=== PATIENT | female | born 1940 | race Caucasian/White ===

== ENCOUNTER 2017-09-21 17:11 | Inpatient (IN) | payer OTHER ==
[~2017-09-21] VITALS: Ht 152.4 cm; Wt 47.5 kg
[2017-09-21] MEDS ORDERED: LORAZEPAM 2 MG/ML 1 ML VIAL IV STA ×2 (17:24→18:50)
--- NOTE | 2017-09-21 17:29 | EMERGENCY ROOM VISIT NOTE ---
History Report prepared by Lori: Enrique Maynard Under the Supervision of: Dr. Ryan Cook M.D. First contact with patient: 17:17 Stated Complaint: FALL History of Present Illness The patient is a 77 year old female who presents to the Emergency Room with complaints of a constant broken hip following a fall that occurred seven hours ago. Per , the patient fell out of her wheelchair this morning. He notes that imaging showed a broken hip bone on the patient's right side. He reports that he did not see the fall occur, but found the patient lying on the floor at the snf. He states that the patient constantly wears a cervical collar due to having a crushed vertebra. HPI limited secondary to dementia. Source of History: spouse/significant other History Limited By: dementia Onset: seven hours ago Position: pelvis Timing: constant Review of Systems ROS unattainable secondary to dementia. Past Medical & Surgical Medical Problems: (1) Dementia (2) Femoral fracture Family History No pertinent family history stated. Social History Marital Status: Housing Status: snf Occupation Status: retired Current/Historical Medications Scheduled Acetaminophen (Tylenol), 650 MG PO QPM Artificial Tear Solution (Artificial Tears), 1 DROPS OP TID Aspirin (Aspirin Ec), 81 MG PO QAM Chlorhexidine Gluconate (Mouth (Peridex), 30 ML PO BID Citalopram Hydrobromide (Celexa), 20 MG PO QAM Divalproex Sodium (Depakote Sprinkle), 125 MG PO BID Estrogens, Conjugated (Premarin), 0.625 MG PV WK Levothyroxine Sodium (Levothyroxine Sodium), 25 MCG PO QAM Lisinopril (Lisinopril), 20 MG PO QAM Melatonin (Melatonin Maximum Strengt), 5 MG PO DAILY AT 1800 Polyethylene Glycol 3350 (Miralax), 17 GM PO QAM Potassium Chloride (Klor-Con Sprinkle), 20 MEQ PO QAM Quetiapine Fumarate (Seroquel), 75 MG PO DAILY AT 1400 Ranitidine Hcl (Zantac), 150 MG PO BID Sennosides-Docusate Sodium (Senna-S), 2 TABS PO BID [Medpass 2.0], 60 ML PO QID Scheduled PRN Acetaminophen (Tylenol), 650 MG PO Q4H PRN for Pain or Fever Bisacodyl (Dulcolax), 1 SUPP KS QAM PRN for EARLY AM DAY 4, NO BM. Hydrocodone/Acetaminophen 5MG/325MG ([place] 5MG/325MG), 0.5 TABLET PO Q4H PRN for Pain Magnesium Hydroxide (Milk of Magnesia), 30 ML PO QPM PRN for NO BM FOR 3 DAYS. Sodium Phosphate/Biphosphate (Fleet Enema), 1 EA KS DAILY PRN for AM DAY 4, NO BM. Allergies Coded Allergies: Azelastine (Verified Allergy, Unknown, UNKNOWN-LISTED ON DEC, 09/21/17) Doxycycline (Verified Allergy, Unknown, UNKNOWN-LISTED ON DEC, 09/21/17) Erythromycin (Verified Allergy, Unknown, UNKNOWN-LISTED ON DEC, 09/21/17) Levocabastine (Verified Allergy, Unknown, UNKNOWN-LISTED ON DEC, 09/21/17) Lodoxamide (Verified Allergy, Unknown, UNKNOWN-LISTED ON DEC, 09/21/17) Sulfamethoxazole w/Trimethoprim (Verified Allergy, Unknown, UNKNOWN- LISTED ON DEC, 09/21/17) Venlafaxine (Verified Allergy, Unknown, UNKNOWN-LISTED ON DEC, 09/21/17) Physical Exam Vital Signs Date Time Temp Pulse Resp B/P (MAP) Pulse Ox O2 Delivery O2 Flow Rate FiO2 09/21/17 20:37 87 18 108/64 96 Room Air 09/21/17 18:33 94 09/21/17 17:20 36.7 93 20 158/62 100 Room Air Physical Exam GENERAL: Patient is in no acute distress. HEENT: No acute trauma, normocephalic atraumatic, mucous membranes moist, no nasal congestion, no scleral icterus. NECK: Wayne j collar in place. LUNGS: Clear to auscultation bilaterally, no wheeze, no rhonchi, breath sounds equal. HEART: Without murmurs gallops or rubs, regular rate and rhythm. ABDOMEN: Soft, nontender, bowel sounds positive, no hernias, no peritonitis. EXTREMITIES: Both hips and knees flexed, pain with palpation and movement to the right hip, no right knee discomfort with palpation, no upper extremity trauma noted. NEUROLOGIC: Moving all extremities, severe dementia noted, awake. SKIN: No rash, no jaundice, no diaphoresis. Medical Decision & Procedures ER Provider Diagnostic Interpretation: Radiology results as stated below per my review and radiologist interpretation: CT SCAN OF THE BRAIN WITHOUT IV CONTRAST FINDINGS: Brain parenchyma: There are age-related involutional changes noting mild to moderate subcortical and periventricular microangiopathic change. There is no hemorrhage, mass effect, or evidence of acute territorial ischemia by CT criteria. Rondon-white matter is preserved. No extra-axial fluid collection is seen. Ventricles, sulci, cisterns: Prominent secondary to involutional change. Intracranial vasculature: There is atherosclerotic calcification of the cavernous carotid arteries. Calvarium: The skeletal structures are osteopenic. No depressed calvarial fracture is seen. Sinuses and mastoids: The visualized paranasal sinuses are clear. The mastoid air cells are well pneumatized. Orbits: The bony orbits are grossly intact. IMPRESSION: There is no hemorrhage, mass effect, or evidence of acute territorial ischemia by CT criteria noting a significantly motion degraded examination. Electronically signed by: Ryan Hobbs M.D. 09/21/2017 7:[address] SCAN OF THE RIGHT HIP WITHOUT IV CONTRAST FINDINGS: The skeletal structures are osteopenic. There is an impacted subcapital fracture of the right femur, best seen on axial image #170. No additional fracture is identified. The visualized right hemipelvis appears intact. Mild arthritic change is seen in the right hip. No lytic or blastic lesion is seen. There is mild hemorrhage around the fracture site. No large hematoma is seen. No joint effusion is identified. The bladder is decompressed around a Velez catheter. The uterus and right adnexa are grossly unremarkable. There is significant fecal retention in the partially imaged colon. No right inguinal adenopathy is seen. IMPRESSION: There is an impacted subcapital fracture of the right femur. Electronically signed by: Ryan Hobbs M.D. 09/21/2017 7:31 PM SINGLE VIEW CHEST FINDINGS: An AP left lateral decubitus chest radiograph is obtained. The examination is severely degraded by inability to properly position the patient. The left hemithorax is almost completely obscured. The cardiomediastinal silhouette cannot be assessed. There is no evidence of congestive failure. The right lung is clear as visualized. No right-sided pneumothorax is seen. The skeletal structures are osteopenic. Healed right-sided rib fractures are suspected. IMPRESSION: 1. The right lung appears clear. 2. The cardiomediastinal silhouette and the left lung cannot be assessed. Electronically signed by: Ryan Hobbs M.D. 09/21/2017 8:31 PM Laboratory Results 09/21/17 18:34 Red Blood Count 3.40, Mean Corpuscular Volume 97.9, Mean Corpuscular Hemoglobin 32.4, Mean Corpuscular Hemoglobin Concent 33.0, Mean Platelet Volume 9.2, Neutrophils (%) (Auto) 75.5, Lymphocytes (%) (Auto) 11.5, Monocytes (%) (Auto) 11.8, Eosinophils (%) (Auto) 1.0, Basophils (%) (Auto) 0.1, Neutrophils # (Auto ) 5.82, Lymphocytes # (Auto) 0.89, Monocytes # (Auto) 0.91, Eosinophils # (Auto ) 0.08, Basophils # (Auto) 0.01 09/21/17 18:34 Test 09/21/17 18:18 09/21/17 18:34 09/21/17 18:40 Urine Color DK YELLOW Urine Appearance CLEAR (CLEAR) Urine pH 7.0 (4.5-7.5) Urine Specific Sherman 1.025 (1.000-1.030) Urine Protein NEG (NEG) Urine Glucose (UA) NEG (NEG) Urine Ketones NEG (NEG) Urine Occult Blood NEG (NEG) Urine Nitrite NEG (NEG) Urine Bilirubin NEG (NEG) Urine Urobilinogen NEG (NEG) Urine Leukocyte Esterase TRACE (NEG) Urine WBC (Auto) 0 /hpf (0-5) Urine RBC (Auto) 0-4 /hpf (0-4) Urine Hyaline Casts (Auto) 1-5 /lpf (0-5) Urine Epithelial Cells (Auto) 5-10 /lpf (0-5) Urine Bacteria (Auto) NEG (NEG) White Blood Count 7.72 K/uL (4.8-10.8) Red Blood Count 3.40 M/uL (4.2-5.4) Hemoglobin 11.0 g/dL (12.0-16.0) Hematocrit 33.3 % (37-47) Mean Corpuscular Volume 97.9 fL (80-100) Mean Corpuscular Hemoglobin 32.4 pg (25-34) Mean Corpuscular Hemoglobin Concent 33.0 g/dl (32-36) Platelet Count 160 K/uL (130-400) Mean Platelet Volume 9.2 fL (7.4-10.4) Neutrophils (%) (Auto) 75.5 % Lymphocytes (%) (Auto) 11.5 % Monocytes (%) (Auto) 11.8 % Eosinophils (%) (Auto) 1.0 % Basophils (%) (Auto) 0.1 % Neutrophils # (Auto) 5.82 K/uL (1.4-6.5) Lymphocytes # (Auto) 0.89 K/uL (1.2-3.4) Monocytes # (Auto) 0.91 K/uL (0.11-0.59) Eosinophils # (Auto) 0.08 K/uL (0-0.5) Basophils # (Auto) 0.01 K/uL (0-0.2) RDW Standard Deviation 46.8 fL (36.4-46.3) RDW Coefficient of Variation 13.1 % (11.5-14.5) Immature Granulocyte % (Auto) 0.1 % Immature Granulocyte # (Auto) 0.01 K/uL (0.00-0.02) Prothrombin Time 10.5 SECONDS (9.0-12.0) Prothromb Time International Ratio 1.0 (0.9-1.1) Activated Partial Thromboplast Time 23.2 SECONDS (21.0-31.0) Partial Thromboplastin Ratio 0.9 Anion Gap 2.0 mmol/L (3-11) Est Creatinine Clear Calc Drug Dose 52.1 ml/min Estimated GFR () 99.7 Estimated GFR (Non- 86.0 BUN/Creatinine Ratio 35.1 (10-20) Calcium Level 8.7 mg/dl (8.5-10.1) Magnesium Level 2.2 mg/dl (1.8-2.4) Valproic Acid (Depakene) Level 38 mcg/ml (50-100) Laboratory results reviewed by me. Medications Administered Medications (Trade) Dose Ordered Sig/Clarissa Route Start Time Stop Time Status Last Admin Dose Admin Lorazepam (Ativan Inj) 0.5 mg NOW STAT IV 09/21/17 17:24 09/21/17 17:28 DC 09/21/17 18:25 0.5 MG Morphine Sulfate (MoRPHine SULFATE INJ) 4 mg Q15M PRN IV 09/21/17 17:30 10/05/17 17:29 09/21/17 18:26 4 MG Lorazepam (Ativan Inj) 1 mg NOW STAT IV 09/21/17 18:50 09/21/17 18:51 DC 09/21/17 19:03 1 MG ECG Indication: other (hip fracture) Rate (beats per minute): 92 Rhythm: normal sinus (significant baseline artifact) Findings: other (old septal infarct, no obvious ischemia) ED Course 1717: The patient was evaluated in room A11. A complete history and physical exam was performed. 1723: Ativan Inj 0.5mg IV 1849: Lorazepam 1mg IV 1948: I reevaluated and updated the patient. I also spoke to the patient's family. 2004: Upon reexamination the patient is stable. I discussed results and treatment plan with the patient. Her verbalizes agreement and understanding. I spoke with Marcia Judge. We discussed the patient's results and findings. The patient will be evaluated for further management. Medical Decision Differential diagnoses include: intracranial bleed, hip/pelvic fracture, infection, anemia, electrolyte imbalance. There is no leukocytosis or concerning anemia. No significant electrolyte abnormality or kidney failure. Urinalysis does not show evidence for infection. There is no coagulopathy. Brain CT shows no acute bleed or mass effect. EKG shows a presumed sinus rhythm, no acute ischemia. Right hip CT does show a subcapital right hip fracture. The patient presents after falling. She has suffered a right hip fracture. She required IV morphine and IV Ativan for pain control and for control of her anxiety. The patient requires a hospital stay. Orthopedic intervention may be required. I did speak to the patient's family. The on-call hospitalist was consulted. Case management is involved. Medication Reconcilliation Current Medication List: was personally reviewed by me Blood Pressure Screening Patient's blood pressure: Elevated blood pressure Blood pressure disposition: Elevated BP felt to be situational Consults Time Called: 2000 Consulting Physician: Marcia Judge Returned Call: 2004 Discussed the patient's case. The patient will be evaluated for further management. Impression Primary Impression: Hip fracture, right Additional Impressions: Fall Dementia Scribe Attestation The scribe's documentation has been prepared under my direction and personally reviewed by me in its entirety. I confirm that the note above accurately reflects all work, treatment, procedures, and medical decision making performed by me. Departure Information Dispostion Being Evaluated By Hospitalist Referrals No Doctor, Assigned (PCP) Problem Qualifiers
[2017-09-21] MEDS ORDERED: MoRPHine SULFATE 4 MG/ML 1 ML CARP\\VIAL IV PRN (17:30)
[2017-09-21] MEDS ORDERED: ACET-1311 PO ×2 (18:57)
[2017-09-21] MEDS ORDERED: POTA1CAP53 PO (18:57)
[2017-09-21] MEDS ORDERED: CHLO0.1222 PO (18:57)
[2017-09-21] MEDS ORDERED: BISA10SU38 PR (18:57)
[2017-09-21] MEDS ORDERED: MEDPASS PO (18:57)
[2017-09-21] MEDS ORDERED: SRQ/50 PO (18:57)
[2017-09-21] MEDS ORDERED: ASPI81TA28 PO (18:57)
[2017-09-21] MEDS ORDERED: HYDR-5688 PO (18:57)
[2017-09-21] MEDS ORDERED: DIVA125C PO (18:57)
[2017-09-21] MEDS ORDERED: SODIENE PR (18:57)
[2017-09-21] MEDS ORDERED: PRMVC PV (18:57)
[2017-09-21] MEDS ORDERED: POLY335019 PO (18:57)
[2017-09-21] MEDS ORDERED: SENN-104 PO (18:57)
[2017-09-21] MEDS ORDERED: RANI150T3 PO (18:57)
[2017-09-21] MEDS ORDERED: ARTISOL12 OP (18:57)
[2017-09-21] MEDS ORDERED: CITA20TA9 PO (18:57)
[2017-09-21] MEDS ORDERED: LEVO25TA5 PO (18:57)
[2017-09-21] MEDS ORDERED: LSN20 PO (18:57)
[2017-09-21] MEDS ORDERED: MELATAB2 PO (18:57)
[2017-09-21] MEDS ORDERED: MOMLX PO (18:57)
[2017-09-21 19:00] LABS: BASO % 0.1 %; BASO ABS # 0.01 K/uL (0-0.2); COMPLETE YES; HEMATOCRIT 33.3 % (37-47); IG% 0.1 %; LYMPH % 11.5 %; LYMPH ABS # 0.89 K/uL (1.2-3.4); MEAN CELL VOLUME 97.9 fL (80-100); MEAN CORPUSCULAR HEMOGLOBIN 32.4 pg (25-34); MEAN PLATELET VOLUME 9.2 fL (7.4-10.4); MONO % 11.8 %; NEUT % 75.5 %; PLATELET COUNT 160 K/uL (130-400); WHITE BLOOD COUNT 7.72 K/uL (4.8-10.8)
[2017-09-21 19:10] LABS: BUN/CREATININE RATIO 35.1 (10-20); CALCIUM 8.7 mg/dl (8.5-10.1); CREATININE 0.67 mg/dl (0.60-1.20); POTASSIUM 4.5 mmol/L (3.5-5.1)
[2017-09-21 19:11] LABS: PARTIAL THROMBOPLASTIN RATIO 0.9; PROTHROMBIN TIME (PATIENT) 10.5 SECONDS (9.0-12.0)
[2017-09-21 19:12] LABS: URINE APPEARANCE CLEAR (CLEAR); URINE BILIRUBIN NEG (NEG); URINE COLOR DK YELLOW; URINE NITRITE NEG (NEG); URINE SPECIFIC GRAVITY 1.025 (1.000-1.030); UROBILINOGEN NEG (NEG); ZZURINE CULT IF INDIC CATH NO
[2017-09-21 19:20] LABS: MANUAL MICROSCOPIC REQUIRED? NO; REVIEW REQ? NO
--- NOTE | 2017-09-21 19:31 | DIAGNOSTIC IMAGING REPORT ---
CT SCAN OF THE BRAIN WITHOUT IV CONTRAST CLINICAL HISTORY: Fall. Dementia. COMPARISON STUDY: No priors. TECHNIQUE: Unenhanced axial CT scan of the brain is performed from the vertex to the skull base. The patient was scanned twice due to motion artifact. The examination is significantly compromised by motion artifact and by inability to properly position the patient within the CT gantry. CT DOSE: 1766.01 mGy.cm FINDINGS: Brain parenchyma: There are age-related involutional changes noting mild to moderate subcortical and periventricular microangiopathic change. There is no hemorrhage, mass effect, or evidence of acute territorial ischemia by CT criteria. Rondon-white matter is preserved. No extra-axial fluid collection is seen. Ventricles, sulci, cisterns: Prominent secondary to involutional change. Intracranial vasculature: There is atherosclerotic calcification of the cavernous carotid arteries. Calvarium: The skeletal structures are osteopenic. No depressed calvarial fracture is seen. Sinuses and mastoids: The visualized paranasal sinuses are clear. The mastoid air cells are well pneumatized. Orbits: The bony orbits are grossly intact. IMPRESSION: There is no hemorrhage, mass effect, or evidence of acute territorial ischemia by CT criteria noting a significantly motion degraded examination. Electronically signed by: Ryan Hobbs M.D. 09/21/2017 7:24 PM Dictated Date/Time: 09/21/2017 7:21 PM
--- NOTE | 2017-09-21 19:33 | DIAGNOSTIC IMAGING REPORT ---
CT SCAN OF THE RIGHT HIP WITHOUT IV CONTRAST CLINICAL HISTORY: Fall. Hip pain. COMPARISON STUDY: No priors. TECHNIQUE: CT scan of the right hip is performed from the bony pelvis to the proximal femur. Images are reviewed in the axial, sagittal, and coronal planes. IV contrast was not administered for this examination. The examination is degraded by motion as well as by inability to properly position the patient. A dose lowering technique was utilized adhering to the principles of ALARA. CT DOSE: 1192.89 mGy.cm FINDINGS: The skeletal structures are osteopenic. There is an impacted subcapital fracture of the right femur, best seen on axial image #170. No additional fracture is identified. The visualized right hemipelvis appears intact. Mild arthritic change is seen in the right hip. No lytic or blastic lesion is seen. There is mild hemorrhage around the fracture site. No large hematoma is seen. No joint effusion is identified. The bladder is decompressed around a Velez catheter. The uterus and right adnexa are grossly unremarkable. There is significant fecal retention in the partially imaged colon. No right inguinal adenopathy is seen. IMPRESSION: There is an impacted subcapital fracture of the right femur. Electronically signed by: Ryan Hobbs M.D. 09/21/2017 7:31 PM Dictated Date/Time: 09/21/2017 7:28 PM
--- NOTE | 2017-09-21 20:32 | DIAGNOSTIC IMAGING REPORT ---
SINGLE VIEW CHEST CLINICAL HISTORY: Fall. Hip fracture FINDINGS: An AP left lateral decubitus chest radiograph is obtained. The examination is severely degraded by inability to properly position the patient. The left hemithorax is almost completely obscured. The cardiomediastinal silhouette cannot be assessed. There is no evidence of congestive failure. The right lung is clear as visualized. No right-sided pneumothorax is seen. The skeletal structures are osteopenic. Healed right-sided rib fractures are suspected. IMPRESSION: 1. The right lung appears clear. 2. The cardiomediastinal silhouette and the left lung cannot be assessed. Electronically signed by: Ryan Hobbs M.D. 09/21/2017 8:31 PM Dictated Date/Time: 09/21/2017 8:29 PM
[2017-09-21] MEDS ORDERED: MoRPHine SULFATE 2 MG/ML CARP IV PRN (21:00)
[2017-09-21] MEDS ORDERED: TRAMADOL HCL 50 MG TAB PO PRN (21:00)
[2017-09-21] MEDS ORDERED: ACETAMINOPHEN 325 MG TAB PO PRN ×2 (21:00)
[2017-09-21] MEDS ORDERED: SOD PHOSPHATE/SOD BIPHOSPHATE ENEMA 132 ML BTL PR PRN (21:00)
[2017-09-21] MEDS ORDERED: POLYETHYLENE (MIRALAX) 17 GM PACK PO PRN (21:00)
[2017-09-21] MEDS ORDERED: MAGNESIUM HYDROXIDE SUSP 30 ML UDC PO PRN (21:00)
[2017-09-21] MEDS ORDERED: NALOXONE HCL 0.4 MG/1 ML VIAL/CARP IV PRN (21:00)
[2017-09-21] MEDS ORDERED: BISACODYL 10 MG SUPP PR PRN (21:00)
[2017-09-21] MEDS ORDERED: HYDROCODONE/ACETAMOPHEN 5/325MG TAB PO PRN (21:00)
[2017-09-21 22:00] VITALS: O2SAT 94; Ht 152.4 cm; Wt 47.5 kg
[2017-09-21 22:07] VITALS: BP 128/56; PULSE 85; TEMP 36.6; O2SAT 94
[2017-09-21] MEDS: SODIUM CHLORIDE 0.45% 1000ML 1,000 ML IV SCH (23:25)
[2017-09-21] MEDS: RANITIDINE HCL 150 MG TAB PO SCH (23:30)
[2017-09-21] MEDS: DIVALPROEX SODIUM SPRINKLE 125 MG CAP PO SCH (23:30)
[2017-09-21] MEDS: DOCUSATE SODIUM/SENNA 50/8.6MG TAB PO SCH (23:30)
[2017-09-22 00:05] VITALS: BP 120/51; PULSE 91; TEMP 37; O2SAT 93
--- NOTE | 2017-09-22 02:39 | HISTORY & PHYSICAL EXAMINATION ---
DATE OF ADMISSION: 09/21/2017 PRIMARY CARE DOCTOR: Dr. Carina Feliciano. CHIEF COMPLAINT: R femoral fracture, fall as per records. HISTORY OF PRESENT ILLNESS: History obtained from patient's family, records. Unable to obtain history from patient because of severe dementia. Patient is an [facility] resident. Medical history significant for dementia, hypertension, history of TIA, chronic anemia as per records (baseline hemoglobin of 11), history of traumatic C1 fracture on cervical collar since 2014. As per patient's , patient tried to get up from her wheelchair today, subsequently, fell down on her right side. Cried out in pain, could not get up. An outpatient x-ray showed nondisplaced fracture of right femoral neck, subcapital region. Patient sent to the Emergency Room. MEDICAL HISTORY: As above. Patient sustained a C1 fracture with spinal instability last February 2015. Last CT from April of 2015 showed marked displacement of fracture segments, left arch of C1, right posterior arch of C1, marked asymmetry of dense with respect to lateral masses and also misalignment of sagittal images. The patient evaluated by [facility] Neurosurgeon. Patient was deemed to be a poor candidate - would not likely survive surgery needed to correct the fracture as per notes. Patient will need to wear a cervical collar for an indefinite amount of time. No follow up visits since. 2D echo from 2013 showed EF 50%, diastolic dysfunction. SURGERIES: She has had tonsillectomy, eye surgery, pelvic surgery. HOME MEDICATIONS: Include Tylenol, bisacodyl, chlorhexidine, estrogen, magnesium hydroxide, Senokot, sodium phosphate, melatonin, potassium chloride, artificial tears, citalopram, Depakote, Vicodin, levothyroxine, lisinopril, polyethylene glycol, ranitidine. ALLERGIES: DOXYCYCLINE, ERYTHROMYCIN, LEVOCABASTINE, LODOXAMIDE, BACTRIM, VENLAFAXINE. FAMILY HISTORY: Could not be obtained. PERSONAL AND SOCIAL HISTORY: Nonsmoker. No chronic intake of alcoholic beverages. Homemaker in her younger years Currently long term resident. REVIEW OF SYSTEMS: Cannot be reliably obtained. PHYSICAL EXAMINATION: VITAL SIGNS: Blood pressure was noted to be 158/62 later 130/80, pulse rate 87, RR 18, temperature 36.7, sats 96 on room air. GENERAL: Lying on her left lateral decubitus. Noted to be demented, slightly uncomfortable. No respiratory distress. Hyposthenic. SKIN: Pallor, warm. HEENT: Pale palpebral conjuctivae. No ptosis. Dry buccal mucosa. NECK: Cervical collar in place. CHEST: Decreased effort. No tenderness. HEART: Regular rate and rhythm. No murmur. ABDOMEN: Soft, nontender. EXTREMITIES: Tenderness on the right hip. No other gross deformities. NEUROLOGIC: Demented. Gait and stance not assessed. No facial asymmetry. LABORATORY DATA: Hemoglobin was noted to be 11, hematocrit 30.2, white cell count 7.2, platelets 160. Sodium 140, potassium 4.5, chloride 106, CO2 34, BUN 24, creatinine 0.6, glucose 87. CT head, no acute pathology. Chest x-ray, no CHF. CT of the hip, impacted subcapital fracture of the right femur. EKG as per my interpretation, rate 90, normal sinus rhythm, no ischemia, artifact ridden study ASSESSMENT: 1. Traumatic right femoral fracture secondary to mechanical fall ambulatory dysfunction. 2. History of unstable cervical fracture on cervical collar since 2014. Poor surgical candidate as per [facility] Neurosurgery evaluation in 2015. 3. Hypertension, slightly elevated. 4. Dementia as per records. 5. hx TIA as per records 6 Chronic anemia, hemoglobin at baseline PLAN: [facility] Orthopedics consult RE R femoral fracture. (Patient's requesting for Dr. Lynn.) No medical contraindication to contemplated Ortho procedure. Acceptable risk for cardiac complications for contemplated intermediate risk procedure.. Patient may however require spine evaluation prior to OR pending Anesthesiology evaluation on account of history of unstable cervical fracture if warranted. Delirium precautions. Resume home aspirin for secondary stroke prevention once if O with Orthopedics. DVT prophylaxis, SCDs for now. Recommend pharmacologic anticoagulation with Lovenox subQ once perioperative bleeding risk is deemed to be minimal and negligible by Orthopedics service. DNR as per patient's /POA, . Chucho Caballero, He requests updates from providers at [phone]/ [phone]. [facility]
[2017-09-22] MEDS: LEVOTHYROXINE 25 MCG TAB PO SCH (06:00)
[2017-09-22 06:43] LABS: BASO % 0.2 %; BASO ABS # 0.02 K/uL (0-0.2); COMPLETE YES; EOS % 0.1 %; HEMATOCRIT 31.8 % (37-47); IG% 0.2 %; LYMPH % 5.3 %; LYMPH ABS # 0.49 K/uL (1.2-3.4); MEAN CELL VOLUME 96.4 fL (80-100); MEAN CORPUSCULAR HEMOGLOBIN 30.9 pg (25-34); MEAN CORPUSCULAR HGB CONC 32.1 g/dl (32-36); MEAN PLATELET VOLUME 9.2 fL (7.4-10.4); MONO % 10.7 %; NEUT % 83.5 %; PLATELET COUNT 149 K/uL (130-400); WHITE BLOOD COUNT 9.24 K/uL (4.8-10.8)
[2017-09-22 07:11] LABS: BUN/CREATININE RATIO 34.6 (10-20); CALCIUM 8.2 mg/dl (8.5-10.1); CREATININE 0.67 mg/dl (0.60-1.20); POTASSIUM 4.2 mmol/L (3.5-5.1)
[2017-09-22 07:56] VITALS: BP 168/65; PULSE 105; TEMP 37.4; O2SAT 93
[2017-09-22] MEDS: RANITIDINE HCL 150 MG TAB PO SCH ×2 (08:30→21:17)
[2017-09-22] MEDS: CITALOPRAM 20 MG TAB PO SCH (08:30)
[2017-09-22] MEDS: ARTIFICIAL TEARS OP SOLN OP SCH ×6 (08:30→21:24)
[2017-09-22] MEDS: POLYETHYLENE (MIRALAX) 17 GM PACK PO SCH (08:30)
[2017-09-22] MEDS: LISINOPRIL 20 MG TAB PO SCH (08:30)
[2017-09-22] MEDS: DIVALPROEX SODIUM SPRINKLE 125 MG CAP PO SCH ×2 (08:30→21:16)
--- NOTE | 2017-09-22 09:09 | DIAGNOSTIC IMAGING REPORT ---
R HIP UNILATERAL 2 VIEWS CLINICAL HISTORY: RT HIP FX trauma. Pain. COMPARISON: CT dated 09/21/2017 DISCUSSION: The impacted subcapital fracture right hip is again noted. There is a linear extension of the fracture line to the mid femoral neck. Slight deformity of the intertrochanteric region felt to be nonacute. Mild calcific trochanteric bursitis. There is no evidence for soft tissue swelling. IMPRESSION: Slightly impacted subcapital fracture right hip. 2. Linear fracture line extending to the mid femoral neck. 3. Mild calcific trochanteric bursitis. 4. No evidence of dislocation. The above report was generated using voice recognition software. It may contain grammatical, syntax or spelling errors. Electronically signed by: Tommy Gonzalez M.D. 09/22/2017 9:07 AM Dictated Date/Time: 09/22/2017 9:05 AM
--- NOTE | 2017-09-22 09:22 | ORTHOPEDIC CONSULTATION REPORT ---
DATE OF CONSULTATION: 09/22/2017 REASON FOR CONSULT: Right hip fracture. HISTORY OF PRESENT ILLNESS: The patient is a 77-year-old white female who is a alf resident and has a history of dementia and at this time, is not a good historian and no family is present. History will be taken from the chart. Apparently, the patient was at [facility] and her was trying to get her up from her wheelchair and she subsequently fell on to her left side. She had cried out in pain apparently and an outpatient x-ray was taken somewhere and showed a nondisplaced fracture of the right femoral neck of the subcapital region. At this time, these films are not available; however, a CT scan was performed here at [facility] and it did show the subcapital fracture. No plain films were done here. PAST MEDICAL HISTORY: History of C1 fracture in 2014, which apparently showed a displacement of fracture fragments with right posterior arch of the C1 and left arch of the C1 with marked asymmetry with respect to the lateral masses and also misalignment of sagittal images; however, the patient was deemed a poor candidate for surgery and surgery was not done and plans were to have the patient wear a cervical collar. She has a history of hypertension, dementia as noted above, and chronic anemia. FAMILY HISTORY: The patient is unable to provide at this point, noncontributory. SOCIAL HISTORY: [facility] She had no history of smoking and no history of alcoholic intake. MEDICATIONS: She is noted to be on Tylenol 650 mg p.o. q.p.m. and p.r.n., artificial tears 1 drop OP t.i.d., aspirin 81 mg p.o. q.a.m., Dulcolax suppository p.r.n., chlorhexidine gluconate 30 mL p.o. b.i.d. for 8 days, Celexa 20 mg p.o. q.a.m., Depakote 125 mg p.o. b.i.d., Premarin 0.625 mg PV given on Fridays, [place] 5/325 half tablet p.o. q. 4 hours p.r.n., levothyroxine 25 mcg p.o. q.a.m., lisinopril 20 mg p.o. q.a.m., milk of magnesia 30 mL p.o. q.p.m. p.r.n., melatonin 5 mg p.o. daily at 1800, MiraLax 17 g p.o. q.a.m., potassium chloride 20 mEq p.o. q.a.m., Seroquel 75 mg p.o. daily, ranitidine 150 mg p.o. b.i.d., Senna-S 2 tablets p.o. b.i.d., Fleet enema p.r.n., Med Pass 2.0 60 mL p.o. q.i.d. ALLERGIES: AZELASTINE, DOXYCYCLINE, ERYTHROMYCIN, LEVOCABASTINE, LODOXAMIDE, BACTRIM, EFFEXOR. REVIEW OF SYSTEMS: As per admitting history and physical. PHYSICAL EXAMINATION: VITAL SIGNS: This morning, temperature 37.4, pulse 105, respirations 17, BP 168/65, pulse ox 93 on room air. GENERAL: The patient is currently lying in bed and is in almost a position at this point in time with her legs drawn up close to her chest, more on the right than the left. When speaking with her, she does reply somewhat but is difficult to understand and does not follow commands well. EXTREMITIES: Examining her right lower extremity, she has the hip flexed to approximately 95 degrees, at least pulled up almost her chest and no attempts can make her move the leg down at this time. It is noted that her right foot is pink and warm and as does the left with pulses 1/4 bilaterally. I cannot examine the patient's leg lengths due to her current position. Palpation of the shoulders, elbows and wrists does not appear to elicit a painful response and assessing range of motion is difficult at this time. She appears to have no injury of the left lower extremity and has no pain on palpation of the left knee or ankle. Difficult to assess the left hip; however, palpation on this area and attempted movement of the left lower extremity, she does not show signs of pain. She does not show signs of pain with palpation of the right knee or the right ankle as well. X-RAY REPORT: CT scan of the hip shows impacted subcapital fracture of the right hip. ASSESSMENT: Subcapital fracture, right hip. PLAN: I have discussed the case with Dr. Lynn this morning. We will attempt to take plain films if possible; if not possible, we will plan for cannulated screws for the right hip initially. If for any reason, once she is in the operating room and x-ray assessment is made that the fracture has worsened, there is a possibility that she would need a bipolar hemiarthroplasty. We will discuss the case with medicine service and with family and continue on her present course of getting her ready for the operating room. SEMAJ
[2017-09-22 09:32] VITALS: O2SAT 93
[2017-09-22 12:20] VITALS: BP 121/62; PULSE 100; TEMP 37; O2SAT 95
[2017-09-22 13:28] VITALS: TEMP 38
[2017-09-22] MEDS: QUETIAPINE FUMARATE 25 MG TAB PO SCH (13:31)
[2017-09-22 15:05] VITALS: BP 149/68; PULSE 89; TEMP 37.3; O2SAT 97
[2017-09-22] MEDS: SODIUM CHLORIDE 0.45% 1000ML 1,000 ML IV SCH (18:08)
--- NOTE | 2017-09-22 19:10 | Progress Note ---
Internal Med Progress Note Date of Service: Sep 22, 2017. Provider Documentation: SUBJECTIVE: The patient was seen and examined Not much communicative Not in any distress Remains in flexed position OBJECTIVE: Vital Signs-as noted below Exam: General-NO distress at rest Eyes-normal ENT-normal Neck-Has cervical collar Lungs-Decreased breath sound bilaterally Heart-Regular,no murmur appreciated Abdomen-Benign,no masses,bowel sound present Extremities-Trace edema bilaterally Neuro-AA Non communicative Lab data as noted below. ASSESSMENT & PLAN: Traumatic right femoral fracture secondary to mechanical fall Ambulatory dysfunction. Not in any Pain at rest Orthopedics consult RE R femoral fracture-Dr Lynn-appreciate Input No medical contraindication to contemplated Ortho procedure. Acceptable risk for cardiac complications for recommended intermediate risk procedure.. Patient may however require spine evaluation prior to OR pending Anesthesiology evaluation-discussed with the anesthesiologist Remains stable clinically Likely surgery in AM History of unstable cervical fracture on cervical collar since 2014. Poor surgical candidate as per [facility] Neurosurgery evaluation in 2015. Anesthesiologist aware Hypertension, slightly elevated. BP is controlled now Dementia as per records. H/O TIA as per records Chronic anemia, hemoglobin at baseline Hb 10 DVT prophylaxis, SCDs for now. Recommend pharmacologic anticoagulation with Lovenox subQ once perioperative bleeding risk is deemed to be minimal and negligible by Orthopedics service. DNR as per patient's /POA, Mr. Chucho Caballero, He requests updates from providers at [phone]/ [phone]. Vital Signs: Date Time Temp Pulse Resp B/P (MAP) Pulse Ox O2 Delivery O2 Flow Rate FiO2 09/22/17 16:00 Room Air 09/22/17 15:05 37.3 89 16 149/68 (95) 97 Room Air 09/22/17 13:28 38.0 09/22/17 12:20 37.0 100 17 121/62 (81) 95 Room Air 09/22/17 09:32 93 Room Air 09/22/17 08:15 Room Air 09/22/17 07:56 37.4 105 17 168/65 (99) 93 Room Air 09/22/17 00:20 Room Air 09/22/17 00:05 37.0 91 16 120/51 (74) 93 Room Air 09/21/17 22:07 36.6 85 16 128/56 (80) 94 Room Air 09/21/17 22:00 94 Room Air 09/21/17 22:00 94 Room Air 09/21/17 20:37 87 18 108/64 96 Room Air Lab Results: Results Past 24 Hours Test 09/22/17 06:08 Range/Units White Blood Count 9.24 4.8-10.8 K/uL Red Blood Count 3.30 4.2-5.4 M/uL Hemoglobin 10.2 12.0-16.0 g/dL Hematocrit 31.8 37-47 % Mean Corpuscular Volume 96.4 80-100 fL Mean Corpuscular Hemoglobin 30.9 25-34 pg Mean Corpuscular Hemoglobin Concent 32.1 32-36 g/dl Platelet Count 149 130-400 K/uL Mean Platelet Volume 9.2 7.4-10.4 fL Neutrophils (%) (Auto) 83.5 % Lymphocytes (%) (Auto) 5.3 % Monocytes (%) (Auto) 10.7 % Eosinophils (%) (Auto) 0.1 % Basophils (%) (Auto) 0.2 % Neutrophils # (Auto) 7.71 1.4-6.5 K/uL Lymphocytes # (Auto) 0.49 1.2-3.4 K/uL Monocytes # (Auto) 0.99 0.11-0.59 K/uL Eosinophils # (Auto) 0.01 0-0.5 K/uL Basophils # (Auto) 0.02 0-0.2 K/uL RDW Standard Deviation 45.4 36.4-46.3 fL RDW Coefficient of Variation 13.0 11.5-14.5 % Immature Granulocyte % (Auto) 0.2 % Immature Granulocyte # (Auto) 0.02 0.00-0.02 K/uL Sodium Level 139 136-145 mmol/L Potassium Level 4.2 3.5-5.1 mmol/L Chloride Level 106 98-107 mmol/L Carbon Dioxide Level 28 21-32 mmol/L Anion Gap 5.0 3-11 mmol/L Blood Urea Nitrogen 23 7-18 mg/dl Creatinine 0.67 0.60-1.20 mg/dl Est Creatinine Clear Calc Drug Dose 52.1 ml/min Estimated GFR () 99.7 Estimated GFR (Non- 86.0 BUN/Creatinine Ratio 34.6 10-20 Random Glucose 128 70-99 mg/dl Calcium Level 8.2 8.5-10.1 mg/dl Microbiology Results 09/21/17 MRSA DNA Surveillance Screen - Final, Complete Specimen Negative for MRSA by DNA Probe
[2017-09-22] MEDS: DOCUSATE SODIUM/SENNA 50/8.6MG TAB PO SCH (21:17)
[2017-09-23] VITALS (11 sets, daily range): BP systolic 90–157; BP diastolic 52–79; PULSE 59–97; TEMP 36.4–37.1; O2SAT 97–100
[2017-09-23] MEDS: LEVOTHYROXINE 25 MCG TAB PO SCH (06:00)
[2017-09-23] MEDS ORDERED: MIDAZOLAM HCL 1 MG/ML 2ML VIAL ONE (06:27)
[2017-09-23] MEDS ORDERED: FENTANYL CITRATE INJ 50 MCG/1 ML 2 ML VIAL ONE (06:27)
[2017-09-23] MEDS ORDERED: PROPOFOL IV EMULSION 10 MG/ML 20 ML VIAL IV ONE (06:28)
[2017-09-23] MEDS ORDERED: KETAMINE HCL INJ 50 MG/ML 10 ML VIAL ONE (07:17)
--- NOTE | 2017-09-23 07:18 | History & Physical Bridge Note ---
H&P Re-Evaluation Bridge Note: I have examined the patient, reviewed the History & Physical and in the interval since the performance of the History & Physical I have noted the following changes of clinical significance: No changes noted
[2017-09-23] MEDS ORDERED: ONDANSETRON INJ 2 MG/ML 2 ML VIAL IV PRN (08:00)
[2017-09-23] MEDS ORDERED: ATROPINE SULFATE 0.1 MG/ML 5ML SYR IV PRN (08:30)
[2017-09-23] MEDS ORDERED: EpHEDrine SULFATE INJ 50 MG/ML AMP IV PRN (08:30)
--- NOTE | 2017-09-23 08:32 | Clinical Documentation Query ---
Please send this to Dr Fay CLINICAL DOCUMENTATION QUERY A 77 year old female who presents to the Emergency Room with complaints of a broken hip following a fall that occurred seven hours ago. In your clinical opinion is this patient being managed for: ( ) Chronic diastolic CHF ( ) Not Agree ( ) Other explanation of clinical findings (Please Explain) ( ) Unable to determine (Please Define) ( ) Need to Discuss The medical record reflects the following clinical findings, treatment, and risk factors. Clinical Indicators: 2D echo from 2014 showed EF 50%, diastolic dysfunction Treatment: I&O, CXR Risk Factors: Age, HTN Please clarify and document your clinical opinion in the progress notes and discharge summary. Terms such as "probable", "suspected", "likely", "questionable", "possible", or "still to be ruled out" are acceptable. IF IN AGREEMENT, YOU MUST DOCUMENT ABOVE DIAGNOSTIC STATEMENT IN DAILY PROGRESS NOTES AND DISCHARGE SUMMARY. This document is not part of the patient's record. Thank You, Layla Flores RN [phone]
--- NOTE | 2017-09-23 08:41 | [facility] Post Operative Brief Note ---
Immediate Operative Summary Operative Date Sep 23, 2017. Pre-Operative Diagnosis Subcapital fracture, right hip Post-Operative Diagnosis same as pre-operative Procedure(s) Performed Open Reduction Internal Fixation Right Hip With Cannulated Screws Surgeon Dr. Lynn Activities Concierge Surgeon(s) none Estimated Blood Loss 10ml Findings garden 1 impacted in valgus femoral neck fx Specimens none per surgeon Anesthesia spinal Complication(s) None Disposition Recovery Room / PACU
--- NOTE | 2017-09-23 08:45 | DIAGNOSTIC IMAGING REPORT ---
INTRAOPERATIVE RADIOGRAPHS CLINICAL HISTORY: Open reduction and internal fixation of the right hip. Fluoroscopy time: 62 seconds. FINDINGS: 2 spot fluoroscopic views of the right hip are correlated with radiographs dated 09/22/2017. 2 intertrochanteric cortical lag screws transfix a subcapital fracture. The orthopedic hardware appears intact. IMPRESSION: Intraoperative images from open reduction and internal fixation of the right hip as above. Electronically signed by: Ryan Hobbs M.D. 09/23/2017 8:43 AM Dictated Date/Time: 09/23/2017 8:40 AM
--- NOTE | 2017-09-23 08:45 | DIAGNOSTIC IMAGING REPORT ---
INTRAOPERATIVE RADIOGRAPHS CLINICAL HISTORY: Open reduction and internal fixation of the right hip. Fluoroscopy time: 62 seconds. FINDINGS: 2 spot fluoroscopic views of the right hip are correlated with radiographs dated 09/22/2017. 2 intertrochanteric cortical lag screws transfix a subcapital fracture. The orthopedic hardware appears intact. IMPRESSION: Intraoperative images from open reduction and internal fixation of the right hip as above. Electronically signed by: Ryan oHbbs M.D. 09/23/2017 8:43 AM Dictated Date/Time: 09/23/2017 8:40 AM
--- NOTE | 2017-09-23 08:54 | OPERATIVE REPORT ---
DATE OF OPERATION: 09/23/2017 INDICATION FOR PROCEDURE: A 77-year-old female who has dementia. She suffered a fall and fractured her right hip. Radiographs and CT scan demonstrated a Garden I impacted in valgus stable femoral neck fracture. PREOPERATIVE DIAGNOSIS: Impacted right femoral neck fracture. POSTOPERATIVE DIAGNOSIS: Same. PROCEDURE: Internal fixation right hip fracture using cannulated screws. SURGEON: Dr. Lynn. SHOW OPERATIONS SUPERVISOR: None. ANESTHESIA: Spinal sedation. OPERATIVE PROCEDURE: The patient was taken to the operating room, anesthetized under spinal sedation. The patient was positioned on a fracture table. Her right leg was placed into boot traction, but no significant traction was placed due to the impacted fracture. Her left leg was placed in a well-padded leg holding device. We used fluoroscopy throughout the case as needed. Right hip was then sterilely prepped and draped with ChloraPrep. A small longitudinal incision was made over the greater trochanter. Skin was incised sharply. The fat was divided down to the fascia. The fascia was divided longitudinally. She is a thin individual and we were able to dissect right down with electrocautery onto the bone trochanter. I used the Synthes 7.3 mm cannulated screws. We placed first a guidewire in the lower third of the head just above the calcar and more toward the anterior aspect on the lateral view. A second pin was parallel to the first and posterior and superior thinned with inverted triangle pattern was in the upper head and neck area. Screws were measured and 3 self-tapping screws were placed, stainless steel Synthes 7.3 mm screws. The patient had reasonably good bone with tight fixation of the screws. We assessed fluoroscopy, the screws to be in satisfactory position all within the head with no joint penetration. Wound was irrigated and the fascia was closed with [id number] #1 Vicryl sutures. Subcutaneous tissues closed with interrupted 2-0 Vicryl sutures, skin closed with guero. Sterile dressings and Op-Site was placed over the operative site. The patient had 10 mL of blood loss. She tolerated the procedure well. I attest to the content of the Intraoperative Record and any orders documented therein. Any exception s are noted below.
[2017-09-23] MEDS: POLYETHYLENE (MIRALAX) 17 GM PACK PO SCH (09:00)
[2017-09-23] MEDS: RANITIDINE HCL 150 MG TAB PO SCH ×2 (09:00→21:12)
[2017-09-23] MEDS: CITALOPRAM 20 MG TAB PO SCH (09:00)
[2017-09-23] MEDS: ARTIFICIAL TEARS OP SOLN OP SCH ×6 (09:00→21:11)
--- NOTE | 2017-09-23 09:12 | Anesthesiology Progress Note ---
Anesthesia Post Op Note Date & Time Sep 23, 2017 at 09:11 Vital Signs Pain Intensity: 0.0 Vital Signs Past 12 Hours Date Time Temp Pulse Resp B/P (MAP) Pulse Ox O2 Delivery O2 Flow Rate FiO2 09/23/17 08:55 54 15 137/47 100 Oxymask 8 09/23/17 08:45 55 15 134/45 100 Oxymask 8 09/23/17 08:37 36.4 59 16 135/60 100 Oxymask 8 09/23/17 06:33 36.5 83 18 107/52 (70) 97 Room Air 09/23/17 00:55 Room Air 09/23/17 00:13 37.1 81 12 131/78 (95) 97 Room Air Notes Mental Status: see Notes Pt Amnestic to Procedure: Yes Nausea / Vomiting: adequately controlled Pain: adequately controlled Airway Patency, RR, SpO2: stable & adequate BP & HR: stable & adequate Hydration State: stable & adequate Neuraxial Anesthesia: was administered, sensory block is resolving Anesthetic Complications: no major complications apparent pt has severe dementia
[2017-09-23] MEDS: DIVALPROEX SODIUM SPRINKLE 125 MG CAP PO SCH ×2 (12:25→21:12)
[2017-09-23] MEDS: ASPIRIN 81 MG ECTAB PO SCH ×2 (12:25→21:12)
[2017-09-23] MEDS: LISINOPRIL 20 MG TAB PO SCH (12:26)
[2017-09-23] MEDS: QUETIAPINE FUMARATE 25 MG TAB PO SCH (12:26)
[2017-09-23] MEDS: ACETAMINOPHEN 500 MG TAB PO SCH ×2 (12:27→21:13)
[2017-09-23] MEDS: SODIUM CHLORIDE 0.45% 1000ML 1,000 ML IV SCH (12:30)
[2017-09-23] MEDS: CEFAZOLIN IV 1,000 MG in SYRINGE 0 ML IV SCH ×2 (12:32→20:10)
[2017-09-23 13:25] LABS: HEMATOCRIT 30.9 % (37-47); MEAN CELL VOLUME 95.7 fL (80-100); MEAN CORPUSCULAR HEMOGLOBIN 31.9 pg (25-34); MEAN CORPUSCULAR HGB CONC 33.3 g/dl (32-36); MEAN PLATELET VOLUME 9.1 fL (7.4-10.4); PLATELET COUNT 127 K/uL (130-400); RED BLOOD COUNT 3.23 M/uL (4.2-5.4); WHITE BLOOD COUNT 9.41 K/uL (4.8-10.8)
[2017-09-23 13:52] LABS: BUN/CREATININE RATIO 30.1 (10-20); CALCIUM 8.8 mg/dl (8.5-10.1); CREATININE 0.6 mg/dl (0.60-1.20); MAGNESIUM 2.1 mg/dl (1.8-2.4); POTASSIUM 4.2 mmol/L (3.5-5.1)
--- NOTE | 2017-09-23 17:44 | Progress Note ---
Medicine Progress Note Date & Time of Visit: Sep 23, 2017 at 17:34. Subjective Patient was seen after surgery today, was very somnolent and not answering questions or making eye contact. No overnight events noted. At baseline patient does have significant dementia. Objective Last 8 Hrs Date Time Temp Pulse Resp B/P (MAP) Pulse Ox O2 Delivery O2 Flow Rate FiO2 09/23/17 15:43 36.9 67 16 90/56 (67) 97 Room Air 09/23/17 12:52 95 16 100/68 (79) 97 Room Air 09/23/17 12:01 90 16 157/76 (103) 09/23/17 10:58 75 16 143/60 (87) 09/23/17 10:37 59 12 155/67 (96) 09/23/17 09:45 Oxymask 2.0 09/23/17 09:45 Nasal Cannula 2.0 Oxymask 09/23/17 09:45 36.4 79 16 146/79 (101) 100 Oxymask 2.0 Physical Exam: GENERAL: Patient is in no acute distress. HEENT: No acute trauma, normocephalic, mucous membranes moist, no nasal congestion, no scleral icterus. NECK: No stridor, trachea is midline. LUNGS: Clear to auscultation bilaterally, no wheeze, no rhonchi, breath sounds equal. HEART: Without murmurs gallops or rubs, regular rate and rhythm. ABDOMEN: Soft, nontender, bowel sounds positive, no hepatosplenomegaly EXTREMITIES: No cyanosis or edema, right hip with surgical dressing and ice pack NEUROLOGIC: Lethargic, unable to assess neuro exam due to mentation SKIN: No rash, no jaundice, no diaphoresis. Laboratory Results: Last 24 Hours Test 09/23/17 12:42 White Blood Count 9.41 K/uL Red Blood Count 3.23 M/uL Hemoglobin 10.3 g/dL Hematocrit 30.9 % Mean Corpuscular Volume 95.7 fL Mean Corpuscular Hemoglobin 31.9 pg Mean Corpuscular Hemoglobin Concent 33.3 g/dl RDW Standard Deviation 44.6 fL RDW Coefficient of Variation 12.7 % Platelet Count 127 K/uL Mean Platelet Volume 9.1 fL Sodium Level 139 mmol/L Potassium Level 4.2 mmol/L Chloride Level 106 mmol/L Carbon Dioxide Level 27 mmol/L Anion Gap 6.0 mmol/L Blood Urea Nitrogen 18 mg/dl Creatinine 0.60 mg/dl Est Creatinine Clear Calc Drug Dose 58.2 ml/min Estimated GFR () 103.3 Estimated GFR (Non- 89.2 BUN/Creatinine Ratio 30.1 Random Glucose 98 mg/dl Calcium Level 8.8 mg/dl Magnesium Level 2.1 mg/dl Assessment & Plan FALL: with resultant right femoral fracture -secondary to mechanical fall -has baseline ambulatory dysfunction and was mostly wheelchair dependent -s/p ORIF POD#0 -pain control -DVT prophylaxis as per Ortho recommendations -encourage incentive spirometry which may prove difficult given dementia CHRONIC UNSTABLE CERVICAL FRACTURE: -unstable cervical fracture, has been on a cervical collar since 2014 -prior evaluation deemed the patient to be a poor surgical candidate (as per [facility] Neurosurgery evaluation in 2015.) -Anesthesiology aware of this issue as well HTN: -controlled -continue home meds DEMENTIA: -as per records. Hx Of TIA: -as per records -continue ASA CHRONIC ANEMIA: -hemoglobin was at baseline ~Hb 10 Current Inpatient Medications: Current Inpatient Medications Medications (Trade) Dose Ordered Sig/Clarissa Route Start Time Stop Time Status Last Admin Dose Admin Morphine Sulfate (MoRPHine SULFATE INJ) 2 mg Q2H PRN IV 09/21/17 21:00 10/05/17 20:59 Naloxone HCl (Narcan Inj) 0.1 mg PRN PRN IV 09/21/17 21:00 10/21/17 20:59 Senna/Docusate Sodium (Senokot S Tab) 2 tab HS PO 09/21/17 21:00 10/21/17 20:59 09/22/17 21:17 2 TAB Polyethylene (Miralax Powder Packet) 17 gm DAILY PRN PO 09/21/17 21:00 10/21/17 20:59 Magnesium Hydroxide (Milk Of Magnesia Susp) 30 ml DAILY PRN PO 09/21/17 21:00 10/21/17 20:59 Bisacodyl (Dulcolax Supp) [address] 09/21/17 21:00 10/21/17 20:59 Sodium Chloride 1,000 ml @ 50 mls/hr Q20H IV 09/21/17 22:30 10/21/17 20:59 09/23/17 12:30 50 MLS/HR Tramadol HCl (Ultram Tab) 25 mg Q6H PRN PO 09/21/17 21:00 10/21/17 20:59 Citalopram Hydrobromide (celeXA TAB) 20 mg QAM PO 09/22/17 09:00 10/22/17 08:59 Divalproex Sodium (Depakote Sprinkle Cap) 125 mg BID PO 09/21/17 21:00 10/21/17 20:59 09/23/17 12:25 125 MG Acetaminophen/ Hydrocodone Bitart ([place] 5/325 Tab) 1 tab Q4H PRN PO 09/21/17 21:00 10/05/17 20:59 Levothyroxine Sodium (Synthroid Tab) 25 mcg DAILYBB PO 09/22/17 06:00 10/22/17 06:59 Lisinopril (Zestril Tab) 20 mg QAM PO 09/22/17 09:00 10/22/17 08:59 09/23/17 12:26 20 MG Quetiapine Fumarate (seroQUEL TAB) 75 mg QD@1400 PO 09/22/17 14:00 10/22/17 13:59 09/23/17 12:26 75 MG Ranitidine HCl (zANTac TAB) 150 mg BID PO 09/21/17 21:00 10/21/17 20:59 09/22/17 21:17 150 MG Artificial Tears (Artificial Tears) 1 drops TID OP 09/22/17 09:00 10/22/17 08:59 09/23/17 12:25 1 DROPS Polyethylene (Miralax Powder Packet) 17 gm QAM PO 09/22/17 09:00 10/22/17 08:59 Cefazolin Sodium 1000 mg/Syringe 5 ml @ 100 mls/hr Q8H IV 09/23/17 12:00 09/23/17 20:02 09/23/17 12:32 100 MLS/HR Ondansetron HCl (Zofran Inj) 4 mg Q6H PRN IV 09/23/17 08:00 10/23/17 07:59 Aspirin (Ecotrin Tab) 81 mg BID PO 09/23/17 09:00 10/23/17 08:59 09/23/17 12:25 81 MG Acetaminophen (Tylenol Tab) 1,000 mg Q8 PO 09/23/17 14:00 10/23/17 13:59 09/23/17 12:27 1,000 MG
[2017-09-23] MEDS: DOCUSATE SODIUM/SENNA 50/8.6MG TAB PO SCH (21:12)
[2017-09-24 03:42] VITALS: BP 167/73; PULSE 77; TEMP 36.8; O2SAT 96
[2017-09-24] MEDS: ACETAMINOPHEN 500 MG TAB PO SCH ×2 (05:24→20:58)
[2017-09-24] MEDS: LEVOTHYROXINE 25 MCG TAB PO SCH (05:33)
--- NOTE | 2017-09-24 07:35 | Orthopedic Progress Note ---
Orthopedic Progress Note Date of Service Sep 24, 2017. Subjective Post OP Day: 1 Additional Notes: Pt appears comfortable. Sitting up in bed. Does not answer questions. Objective Dressings intact. Thigh with mild swelling but soft. Date Time Temp Pulse Resp B/P (MAP) Pulse Ox O2 Delivery O2 Flow Rate FiO2 09/24/17 03:42 36.8 77 17 167/73 (104) 96 Room Air 09/24/17 00:20 Room Air 09/23/17 23:05 37.1 90 18 142/77 (98) 97 Room Air 09/23/17 20:00 36.4 97 15 140/73 (95) 97 Room Air 09/23/17 18:21 84 16 148/73 (98) 97 Room Air 09/23/17 16:10 Room Air 09/23/17 15:43 36.9 67 16 90/56 (67) 97 Room Air 09/23/17 12:52 95 16 100/68 (79) 97 Room Air 09/23/17 12:01 90 16 157/76 (103) 09/23/17 10:58 75 16 143/60 (87) 09/23/17 10:37 59 12 155/67 (96) 09/23/17 09:45 Oxymask 2.0 09/23/17 09:45 Nasal Cannula 2.0 Oxymask 09/23/17 09:45 36.4 79 16 146/79 (101) 100 Oxymask 2.0 09/23/17 09:29 57 15 141/49 100 Oxymask 2 09/23/17 09:15 36.4 60 15 139/80 100 Oxymask 2 09/23/17 09:05 64 15 137/88 100 Oxymask 4 09/23/17 08:55 54 15 137/47 100 Oxymask 8 09/23/17 08:45 55 15 134/45 100 Oxymask 8 09/23/17 08:37 36.4 59 16 135/60 100 Oxymask 8 Laboratory Results 24 Hours: Test 09/23/17 12:42 09/24/17 04:44 Hematocrit 30.9 % Hemoglobin 10.3 g/dL Assessment & Plan Assessment: Subcapital Fx Right Hip Plan: NWB RLE; Bed to chair only DVT prophylaxis with ASA,TEDS, SCD's Plan return to SNF when medically stable
--- NOTE | 2017-09-24 07:38 | Consultant Recommendations ---
Compensation And Benefits Administrator Recommendations Date of Service Sep 24, 2017. Compensation And Benefits Administrator Recommendations [facility]: HIP FRACTURE SELF CARE INSTRUCTIONS: A. You are to ambulate with a walker or crutches for approximately 6 weeks. B. You are Nonweightbearing on your operative lower extremity for at least 6 weeks. Bed to chair only until seen back in the office. C. Wear low heeled shoes with non-slip soles D. Be sure that your floors are free of things that could trip you throw rugs, electrical cords, and small objects. Avoid wet and waxed floors, especially with crutches/walker/cane. E. Try to walk several times a day with rest periods between. F. You may shower 48 hours after surgery and get the incision area wet, but DO NOT soak or submerge incision area in water. (No baths, swimming pools, hot tubs ) G. Change dressing daily. Please keep wound covered. If incision is leaking through the dressing, or you notice increased redness, swelling, or purulent drainage, please call the office . H. Do NOT apply soap or any ointment/lotions directly over incision. I. You may use ice as needed to operative site. SPECIAL CARE INSTRUCTIONS: VERY IMPORTANT TO READ AND REVIEW A. You may be at risk for phlebitis or blood clots. a. Wear surgical stockings (RIMA hose) for 2 weeks after surgery to improve circulation and reduce swelling. b. Take ASPIRIN 81 mg twice daily for 4 weeks or as directed. This is your blood thinner. c. If you are on Coumadin- you will have daily/weekly blood work to monitor your levels. This will be done by either your family physician/ risk and insurance consultant (if you are on Coumadin chronically) versus your orthopedic surgeon. Expect a phone call the day of or the day after your blood work is drawn to adjust your dose accordingly. B. There are a few signs you need to watch for after you are home. Call [facility] at [phone] if you experience any of the following: a. If you have a temperature of 101 degrees or higher. b. Sudden increase in pain in your hip not relieved by rest or pain medication. c. Any fluid or drainage from the incision; redness of the incision. d. Shortness of breath or chest pain. C. Call your physician if: a. Temperature is greater than 101 degrees (F). b. Pain is not relieved by prescribed pain medications. c. Increase drainage or redness from incision. d. Unanswered questions or concerns. D. Pain Medication: a. You will be prescribed pain medication upon discharge that should last till your first post-operative appointment. b. If you experience nausea and/or skin rash, discontinue this medication and contact our office for an alternative medication. c. Caution- narcotic pain medication can cause constipation. FOLLOW UP VISIT: Please call [facility] at [phone] to schedule a follow up appointment 10-14 days from the date of your surgery date.
[2017-09-24] MEDS: SODIUM CHLORIDE 0.45% 1000ML 1,000 ML IV SCH ×2 (07:41→20:56)
[2017-09-24 07:53] LABS: MEAN CELL VOLUME 94.9 fL (80-100); MEAN CORPUSCULAR HEMOGLOBIN 30.7 pg (25-34); MEAN CORPUSCULAR HGB CONC 32.3 g/dl (32-36); PLATELET COUNT 126 K/uL (130-400); RED BLOOD COUNT 3.16 M/uL (4.2-5.4)
[2017-09-24 08:17] LABS: BUN/CREATININE RATIO 31.6 (10-20); CALCIUM 8.2 mg/dl (8.5-10.1); CREATININE 0.55 mg/dl (0.60-1.20)
[2017-09-24] MEDS: ARTIFICIAL TEARS OP SOLN OP SCH ×6 (09:00→20:51)
[2017-09-24] MEDS: CITALOPRAM 20 MG TAB PO SCH (09:09)
[2017-09-24] MEDS: DIVALPROEX SODIUM SPRINKLE 125 MG CAP PO SCH ×2 (09:10→20:57)
[2017-09-24] MEDS: RANITIDINE HCL 150 MG TAB PO SCH ×2 (09:10→20:57)
[2017-09-24] MEDS: POLYETHYLENE (MIRALAX) 17 GM PACK PO SCH (09:11)
[2017-09-24] MEDS ORDERED: NURSING VERBAL MED ORDER ONE ×2 (09:15→14:15)
[2017-09-24 09:41] VITALS: BP 178/74; PULSE 95; TEMP 36.5; O2SAT 95
[2017-09-24] MEDS ORDERED: ASPIRIN 81 MG CHEW PO SCH (10:30)
[2017-09-24] MEDS: ASPIRIN 81 MG CHEW PO SCH ×2 (11:05→20:58)
[2017-09-24] MEDS: QUETIAPINE FUMARATE 25 MG TAB PO SCH (13:46)
[2017-09-24] MEDS: ACETAMINOPHEN SOLN 160 MG/5 ML BTL PO SCH ×3 (14:00→14:14)
[2017-09-24 14:09] VITALS: BP 158/66; PULSE 95
[2017-09-24] MEDS ORDERED: ACETAMINOPHEN 500 MG TAB PO SCH (14:30)
[2017-09-24] MEDS ORDERED: LISINOPRIL 10 MG TAB PO STA (14:34)
[2017-09-24 15:31] VITALS: BP 138/59; PULSE 92; TEMP 36.5; O2SAT 97
--- NOTE | 2017-09-24 18:59 | Progress Note ---
Medicine Progress Note Date & Time of Visit: Sep 24, 2017 at 18:58. Subjective Patient sitting in bed and mumbling, not answering questions or following commands. No overnight events noted. Has a buchanan still. Appetite has been poor. Objective Last 8 Hrs Date Time Temp Pulse Resp B/P (MAP) Pulse Ox O2 Delivery O2 Flow Rate FiO2 09/24/17 15:31 36.5 92 16 138/59 (85) 97 Room Air 09/24/17 14:09 95 158/66 (96) Physical Exam: GENERAL: Patient is in no acute distress. HEENT: No acute trauma, normocephalic, mucous membranes moist, no nasal congestion, no scleral icterus. NECK: No stridor, trachea is midline. LUNGS: Clear to auscultation bilaterally, no wheeze, no rhonchi, breath sounds equal. HEART: Without murmurs gallops or rubs, regular rate and rhythm. ABDOMEN: Soft, nontender, bowel sounds positive, no hepatosplenomegaly EXTREMITIES: No cyanosis or edema, right hip with surgical dressing and ice pack NEUROLOGIC: Confused, unable to assess neuro exam due to mentation SKIN: No rash, no jaundice, no diaphoresis. Laboratory Results: Last 24 Hours Test 09/24/17 07:27 White Blood Count 9.30 K/uL Red Blood Count 3.16 M/uL Hemoglobin 9.7 g/dL Hematocrit 30.0 % Mean Corpuscular Volume 94.9 fL Mean Corpuscular Hemoglobin 30.7 pg Mean Corpuscular Hemoglobin Concent 32.3 g/dl RDW Standard Deviation 43.9 fL RDW Coefficient of Variation 12.7 % Platelet Count 126 K/uL Mean Platelet Volume 9.0 fL Sodium Level 138 mmol/L Potassium Level 4.0 mmol/L Chloride Level 106 mmol/L Carbon Dioxide Level 26 mmol/L Anion Gap 7.0 mmol/L Blood Urea Nitrogen 17 mg/dl Creatinine 0.55 mg/dl Est Creatinine Clear Calc Drug Dose 63.5 ml/min Estimated GFR () 106.3 Estimated GFR (Non- 91.8 BUN/Creatinine Ratio 31.6 Random Glucose 95 mg/dl Calcium Level 8.2 mg/dl Assessment & Plan FALL: with resultant right femoral fracture -secondary to mechanical fall -has baseline ambulatory dysfunction and was mostly wheelchair dependent -s/p ORIF POD#1 -pain control -DVT prophylaxis as per Ortho recommendations -encourage incentive spirometry which may prove difficult given dementia CHRONIC UNSTABLE CERVICAL FRACTURE: -unstable cervical fracture, has been on a cervical collar since 2015 -prior evaluation deemed the patient to be a poor surgical candidate (as per [facility] [place] in [place].) -Anesthesiology aware of this issue as well HTN: -continue home meds; restart lisinopril -stop IV fluids DEMENTIA: -as per records. Hx Of TIA: -as per records -continue ASA CHRONIC ANEMIA: -hemoglobin was at baseline ~Hb 10 Current Inpatient Medications: Current Inpatient Medications Medications (Trade) Dose Ordered Sig/Clarissa Route Start Time Stop Time Status Last Admin Dose Admin Morphine Sulfate (MoRPHine SULFATE INJ) 2 mg Q2H PRN IV 09/21/17 21:00 10/05/17 20:59 Naloxone HCl (Narcan Inj) 0.1 mg PRN PRN IV 09/21/17 21:00 10/21/17 20:59 Polyethylene (Miralax Powder Packet) 17 gm DAILY PRN PO 09/21/17 21:00 10/21/17 20:59 Magnesium Hydroxide (Milk Of Magnesia Susp) 30 ml DAILY PRN PO 09/21/17 21:00 10/21/17 20:59 Bisacodyl (Dulcolax Supp) 10 mg DAILY PRN VA 09/21/17 21:00 10/21/17 20:59 Sodium Chloride 1,000 ml @ 75 mls/hr [id number] IV 09/21/17 22:30 10/21/17 20:59 09/24/17 07:41 75 MLS/HR Tramadol HCl (Ultram Tab) 25 mg Q6H PRN PO 09/21/17 21:00 10/21/17 20:59 09/24/17 00:26 25 MG Citalopram Hydrobromide (celeXA TAB) 20 mg QAM PO 09/22/17 09:00 10/22/17 08:59 09/24/17 09:09 20 MG Divalproex Sodium (Depakote Sprinkle Cap) 125 mg BID PO 09/21/17 21:00 10/21/17 20:59 09/24/17 09:10 125 MG Acetaminophen/ Hydrocodone Bitart ([place] 5/325 Tab) 1 tab Q4H PRN PO 09/21/17 21:00 12/17/17 20:59 Levothyroxine Sodium (Synthroid Tab) 25 mcg DAILYBB PO 09/22/17 06:00 10/22/17 06:59 Quetiapine Fumarate (seroQUEL TAB) 75 mg QD@1400 PO 09/22/17 14:00 10/22/17 13:59 09/24/17 13:46 75 MG Ranitidine HCl (zANTac TAB) 150 mg BID PO 09/21/17 21:00 10/21/17 20:59 09/24/17 09:10 150 MG Artificial Tears (Artificial Tears) 1 drops TID OP 09/22/17 09:00 10/22/17 08:59 09/24/17 13:46 1 DROPS Polyethylene (Miralax Powder Packet) 17 gm QAM PO 09/22/17 09:00 10/22/17 08:59 09/24/17 09:11 17 GM Ondansetron HCl (Zofran Inj) 4 mg Q6H PRN IV 09/23/17 08:00 10/23/17 07:59 Senna (Senokot Syrup) 17.6 mg HS PO 09/24/17 21:00 10/24/17 20:59 Docusate Sodium (coLACE SYRUP) 100 mg HS PO 09/24/17 21:00 10/24/17 20:59 Aspirin (Aspirin Chew) 81 mg BID PO 09/24/17 10:30 10/24/17 10:29 09/24/17 11:05 81 MG Lisinopril (Zestril Tab) 20 mg QAM PO 09/25/17 09:00 10/25/17 08:59 Acetaminophen (Tylenol Tab) 1,000 mg Q8 PO 09/24/17 22:00 10/24/17 21:59
[2017-09-24] MEDS: SENNA 17.6 MG/10 ML UDP PO SCH (21:00)
[2017-09-24] MEDS: DOCUSATE SODIUM 100 MG/10 ML UDC PO SCH (21:00)
[2017-09-24] MEDS ORDERED: DOCUSATE SODIUM 100 MG/10 ML UDC PO SCH (21:00)
[2017-09-24 23:35] VITALS: BP 154/82; PULSE 86; TEMP 36.3; O2SAT 96
[2017-09-25] MEDS: LEVOTHYROXINE 25 MCG TAB PO SCH (05:33)
[2017-09-25] MEDS: ACETAMINOPHEN 500 MG TAB PO SCH ×3 (05:38→21:17)
[2017-09-25 06:27] LABS: BASO % 0.3 %; BASO ABS # 0.02 K/uL (0-0.2); EOS % 1.9 %; HEMATOCRIT 27.5 % (37-47); IG% 0.3 %; LYMPH % 9.1 %; LYMPH ABS # 0.61 K/uL (1.2-3.4); MEAN CELL VOLUME 95.2 fL (80-100); MEAN CORPUSCULAR HEMOGLOBIN 30.8 pg (25-34); MEAN CORPUSCULAR HGB CONC 32.4 g/dl (32-36); MONO % 9.9 %; NEUT % 78.5 %; PLATELET COUNT 125 K/uL (130-400); RED BLOOD COUNT 2.89 M/uL (4.2-5.4); WHITE BLOOD COUNT 6.67 K/uL (4.8-10.8)
[2017-09-25 07:19] LABS: COMPLETE YES
[2017-09-25 07:22] VITALS: BP 166/77; PULSE 88; TEMP 36.7; O2SAT 98
[2017-09-25] MEDS: RANITIDINE HCL 150 MG TAB PO SCH ×2 (08:55→21:00)
[2017-09-25] MEDS: ARTIFICIAL TEARS OP SOLN OP SCH ×6 (08:55→21:00)
--- NOTE | 2017-09-25 08:56 | Orthopedic Progress Note ---
Orthopedic Progress Note Date of Service Sep 25, 2017. Subjective Post OP Day: 2 Additional Notes: Pt sitting up in bed talking to herself. When asking her questions, she smiles. Appears to be comfortable. Pleasantly confused. Objective N/V intact, incision C/D/I, toes mobile thigh with mild swelling but soft. Date Time Temp Pulse Resp B/P (MAP) Pulse Ox O2 Delivery O2 Flow Rate FiO2 09/25/17 07:22 36.7 88 18 166/77 (106) 98 Room Air 09/25/17 00:45 Room Air 09/24/17 23:35 36.3 86 15 154/82 (106) 96 Room Air 09/24/17 16:30 Room Air 09/24/17 15:31 36.5 92 16 138/59 (85) 97 Room Air 09/24/17 14:09 95 158/66 (96) 09/24/17 09:41 36.5 95 16 178/74 (108) 95 Room Air 09/24/17 08:55 Room Air Laboratory Results 24 Hours: Test 09/25/17 06:00 White Blood Count 6.67 K/uL Red Blood Count 2.89 M/uL Hemoglobin 8.9 g/dL Hematocrit 27.5 % Mean Corpuscular Volume 95.2 fL Mean Corpuscular Hemoglobin 30.8 pg Mean Corpuscular Hemoglobin Concent 32.4 g/dl Platelet Count 125 K/uL Mean Platelet Volume 9.0 fL Neutrophils (%) (Auto) 78.5 % Lymphocytes (%) (Auto) 9.1 % Monocytes (%) (Auto) 9.9 % Eosinophils (%) (Auto) 1.9 % Basophils (%) (Auto) 0.3 % Neutrophils # (Auto) 5.23 K/uL Lymphocytes # (Auto) 0.61 K/uL Monocytes # (Auto) 0.66 K/uL Eosinophils # (Auto) 0.13 K/uL Basophils # (Auto) 0.02 K/uL Assessment & Plan Assessment: POD 2 s/p Right ORIF Subcapital Hip Fx. Plan: NWB RLE; Bed to chair only DVT prophylaxis with ASA,TEDS, SCD's Plan return to SNF when medically stable
[2017-09-25] MEDS: POLYETHYLENE (MIRALAX) 17 GM PACK PO SCH (08:57)
[2017-09-25] MEDS: CITALOPRAM 20 MG TAB PO SCH (08:57)
[2017-09-25] MEDS: LISINOPRIL 20 MG TAB PO SCH (08:57)
[2017-09-25] MEDS: DIVALPROEX SODIUM SPRINKLE 125 MG CAP PO SCH ×2 (08:57→21:00)
[2017-09-25] MEDS: ASPIRIN 81 MG CHEW PO SCH ×2 (08:58→21:00)
[2017-09-25] MEDS: SODIUM CHLORIDE 0.45% 1000ML 1,000 ML IV SCH ×2 (09:53→23:23)
[2017-09-25] MEDS: QUETIAPINE FUMARATE 25 MG TAB PO SCH (13:43)
[2017-09-25 13:54] VITALS: BP 167/69; PULSE 85
[2017-09-25 15:12] VITALS: BP 100/61; PULSE 82; TEMP 37.1; O2SAT 98
--- NOTE | 2017-09-25 19:23 | Progress Note ---
Medicine Progress Note Date & Time of Visit: Sep 25, 2017 at 19:23. Subjective Patient sleeping, will occasionally mumble and open eyes but no meaningful contact. No overnight events noted. Had buchanan removed and is incontinent. BP was mildly elevated in the AM but improved now. Appetite remains poor. Objective Last 8 Hrs Date Time Temp Pulse Resp B/P (MAP) Pulse Ox O2 Delivery O2 Flow Rate FiO2 09/25/17 15:12 37.1 82 18 100/61 (74) 98 Room Air 09/25/17 13:54 85 167/69 (101) Physical Exam: GENERAL: Patient is in no acute distress. HEENT: No acute trauma, normocephalic, mucous membranes moist, no nasal congestion, no scleral icterus. NECK: No stridor, trachea is midline. LUNGS: Clear to auscultation bilaterally, no wheeze, no rhonchi, breath sounds equal. HEART: Without murmurs gallops or rubs, regular rate and rhythm. ABDOMEN: Soft, nontender, bowel sounds positive, no hepatosplenomegaly EXTREMITIES: No cyanosis or edema, right hip with dressing over incision NEUROLOGIC: Confused, unable to assess neuro exam due to mentation SKIN: No rash, no jaundice, no diaphoresis. Laboratory Results: Last 24 Hours Test 09/25/17 06:00 White Blood Count 6.67 K/uL Red Blood Count 2.89 M/uL Hemoglobin 8.9 g/dL Hematocrit 27.5 % Mean Corpuscular Volume 95.2 fL Mean Corpuscular Hemoglobin 30.8 pg Mean Corpuscular Hemoglobin Concent 32.4 g/dl Platelet Count 125 K/uL Mean Platelet Volume 9.0 fL Neutrophils (%) (Auto) 78.5 % Lymphocytes (%) (Auto) 9.1 % Monocytes (%) (Auto) 9.9 % Eosinophils (%) (Auto) 1.9 % Basophils (%) (Auto) 0.3 % Neutrophils # (Auto) 5.23 K/uL Lymphocytes # (Auto) 0.61 K/uL Monocytes # (Auto) 0.66 K/uL Eosinophils # (Auto) 0.13 K/uL Basophils # (Auto) 0.02 K/uL RDW Standard Deviation 44.2 fL RDW Coefficient of Variation 12.8 % Immature Granulocyte % (Auto) 0.3 % Immature Granulocyte # (Auto) 0.02 K/uL Red Blood Cell Morphology Unremarkable Assessment & Plan FALL: with resultant right femoral fracture -secondary to mechanical fall -has baseline ambulatory dysfunction and was mostly wheelchair dependent -s/p ORIF POD#2 -pain control; has been -DVT prophylaxis as per Ortho recommendations -encourage incentive spirometry which may prove difficult given dementia CHRONIC UNSTABLE CERVICAL FRACTURE: -unstable cervical fracture, has been on a cervical collar since 2014 -prior evaluation deemed the patient to be a poor surgical candidate (as per [facility] [place] -Anesthesiology aware of this issue as well HTN: -continue home meds; restarted lisinopril -stopped IV fluids DEMENTIA: -as per records -remains confused and at baseline Hx Of TIA: -as per records -continue ASA CHRONIC ANEMIA: -hemoglobin was at baseline ~Hb 10 prior to surgery -has drifted down (8.9) secondary to blood loss from surgery; no noted bleeding elsewhere Current Inpatient Medications: Current Inpatient Medications Medications (Trade) Dose Ordered Sig/Clarissa Route Start Time Stop Time Status Last Admin Dose Admin Morphine Sulfate (MoRPHine SULFATE INJ) 2 mg Q2H PRN IV 09/21/17 21:00 10/05/17 20:59 Naloxone HCl (Narcan Inj) 0.1 mg PRN PRN IV 09/21/17 21:00 10/21/17 20:59 Polyethylene (Miralax Powder Packet) 17 gm DAILY PRN PO 09/21/17 21:00 10/21/17 20:59 Magnesium Hydroxide (Milk Of Magnesia Susp) 30 ml DAILY PRN PO 09/21/17 21:00 10/21/17 20:59 Bisacodyl (Dulcolax Supp) 10 mg DAILY PRN SC 09/21/17 21:00 10/21/17 20:59 Sodium Chloride 1,000 ml @ 75 mls/hr [id number] IV 09/21/17 22:30 10/21/17 20:59 09/25/17 09:53 75 MLS/HR Tramadol HCl (Ultram Tab) 25 mg Q6H PRN PO 09/21/17 21:00 10/21/17 20:59 09/24/17 00:26 25 MG Citalopram Hydrobromide (celeXA TAB) 20 mg QAM PO 09/22/17 09:00 10/22/17 08:59 09/25/17 08:57 20 MG Divalproex Sodium (Depakote Sprinkle Cap) 125 mg BID PO 09/21/17 21:00 10/21/17 20:59 09/25/17 08:57 125 MG Acetaminophen/ Hydrocodone Bitart ([place] 5/325 Tab) 1 tab Q4H PRN PO 09/21/17 21:00 10/05/17 20:59 Levothyroxine Sodium (Synthroid Tab) 25 mcg DAILYBB PO 09/22/17 06:00 10/22/17 06:59 09/25/17 05:33 25 MCG Quetiapine Fumarate (seroQUEL TAB) 75 mg QD@1400 PO 09/22/17 14:00 10/22/17 13:59 09/25/17 13:43 75 MG Ranitidine HCl (zANTac TAB) 150 mg BID PO 09/21/17 21:00 10/21/17 20:59 09/25/17 08:55 150 MG Artificial Tears (Artificial Tears) 1 drops TID OP 09/22/17 09:00 10/22/17 08:59 09/25/17 13:43 1 DROPS Polyethylene (Miralax Powder Packet) 17 gm QAM PO 09/22/17 09:00 10/22/17 08:59 09/25/17 08:57 17 GM Ondansetron HCl (Zofran Inj) 4 mg Q6H PRN IV 09/23/17 08:00 10/23/17 07:59 Senna (Senokot Syrup) 17.6 mg HS PO 09/24/17 21:00 10/24/17 20:59 Docusate Sodium (coLACE SYRUP) 100 mg HS PO 09/24/17 21:00 10/24/17 20:59 Aspirin (Aspirin Chew) 81 mg BID PO 09/24/17 10:30 10/24/17 10:29 09/25/17 08:58 81 MG Lisinopril (Zestril Tab) 20 mg QAM PO 09/25/17 09:00 10/25/17 08:59 09/25/17 08:57 20 MG Acetaminophen (Tylenol Tab) 1,000 mg Q8 PO 09/24/17 22:00 10/24/17 21:59 09/25/17 13:44 1,000 MG
[2017-09-25] MEDS: SENNA 17.6 MG/10 ML UDP PO SCH (21:00)
[2017-09-25] MEDS: DOCUSATE SODIUM 100 MG/10 ML UDC PO SCH (21:00)
[2017-09-25 22:58] VITALS: BP 162/81; PULSE 86; TEMP 36.8; O2SAT 99
[2017-09-26] MEDS: ACETAMINOPHEN 500 MG TAB PO SCH ×2 (05:24→13:35)
[2017-09-26] MEDS: LEVOTHYROXINE 25 MCG TAB PO SCH (05:24)
[2017-09-26 08:00] VITALS: BP 144/66; PULSE 86; TEMP 36.8; O2SAT 99
--- NOTE | 2017-09-26 08:13 | Orthopedic Progress Note ---
Orthopedic Progress Note Date of Service Sep 26, 2017. Subjective Post OP Day: 3 Additional Notes: Pt lying in bed. Pleasantly confused. Appears comfortable. Objective calves soft nontender, incision C/D/I Date Time Temp Pulse Resp B/P (MAP) Pulse Ox O2 Delivery O2 Flow Rate FiO2 09/25/17 23:31 Room Air 09/25/17 22:58 36.8 86 16 162/81 (108) 99 Room Air 09/25/17 15:45 Room Air 09/25/17 15:12 37.1 82 18 100/61 (74) 98 Room Air 09/25/17 13:54 85 167/69 (101) Assessment & Plan Assessment: POD 3 s/p Right ORIF Subcapital Hip Fx. Plan: NWB RLE; Bed to chair only DVT prophylaxis with ASA,TEDS, SCD's Plan return to SNF when medically stable ORTHO WILL SIGN OFF. PLEASE CALL WITH ANY QUESTIONS
[2017-09-26] MEDS: LISINOPRIL 20 MG TAB PO SCH (08:47)
[2017-09-26] MEDS: CITALOPRAM 20 MG TAB PO SCH (08:47)
[2017-09-26] MEDS: ASPIRIN 81 MG CHEW PO SCH (08:47)
[2017-09-26] MEDS: DIVALPROEX SODIUM SPRINKLE 125 MG CAP PO SCH (08:47)
[2017-09-26] MEDS: ARTIFICIAL TEARS OP SOLN OP SCH ×4 (08:47→13:36)
[2017-09-26] MEDS: RANITIDINE HCL 150 MG TAB PO SCH (08:47)
[2017-09-26] MEDS: POLYETHYLENE (MIRALAX) 17 GM PACK PO SCH (08:47)
[2017-09-26 11:59] VITALS: BP 170/80; PULSE 86; TEMP 36.2; O2SAT 100
[2017-09-26 12:23] VITALS: BP 170/80; PULSE 86; TEMP 36.2; O2SAT 100
--- NOTE | 2017-09-26 13:31 | Discharge Instructions ---
Discharge Instructions Date of Service Sep 26, 2017. Admission Reason for Admission: Femoral Fracture Discharge Discharge Diagnosis / Problem: Fall, Femoral fracture Discharge Goals Goal(s): Therapeutic intervention Activity Recommendations Activity Level: Assistance Required Therapies: Physical Therapy, Weight Bearing Status, Occupational Therapy Weightbearing Status: Right non-weightbearing . Additional Information Patient informed of condition: Yes Advance Directives: Yes DNR: Yes Level of Care: Skilled Communicable Disease: No Prognosis: Stable Velez Catheter: No Instructions / Follow-Up Instructions / Follow-Up Please follow up with Primary Care physician in 5-7 days Please follow up with Orthopedics as advised Current Hospital Diet Patient's current hospital diet: AHA Diet (Heart Healthy) Discharge Diet Recommended Diet: Regular Diet, AHA Diet (Heart Healthy) Procedures Procedures Performed: Open Reduction Internal Fixation Right Hip With Cannulated Screws Pending Studies Studies pending at discharge: no Medical Emergencies . Who to Call and When: Medical Emergencies: If at any time you feel your situation is an emergency, please call 911 immediately. . Non-Emergent Contact Non-Emergency issues call your: Primary Care Provider . . "Provider Documentation" section prepared by Anna Fay. . Snack Bar Cashier Recommendations Snack Bar Cashier Recommendations: U DISCHARGE INSTRUCTIONS: HIP FRACTURE SELF CARE INSTRUCTIONS: A. You are to ambulate with a walker or crutches for approximately 6 weeks. B. You are Nonweightbearing on your operative lower extremity for at least 6 weeks. Bed to chair only until seen back in the office. C. Wear low heeled shoes with non-slip soles D. Be sure that your floors are free of things that could trip you throw rugs, electrical cords, and small objects. Avoid wet and waxed floors, especially with crutches/walker/cane. E. Try to walk several times a day with rest periods between. F. You may shower 48 hours after surgery and get the incision area wet, but DO NOT soak or submerge incision area in water. (No baths, swimming pools, hot tubs ) G. Change dressing daily. Please keep wound covered. If incision is leaking through the dressing, or you notice increased redness, swelling, or purulent drainage, please call the office [phone]. H. Do NOT apply soap or any ointment/lotions directly over incision. I. You may use ice as needed to operative site. SPECIAL CARE INSTRUCTIONS: VERY IMPORTANT TO READ AND REVIEW A. You may be at risk for phlebitis or blood clots. a. Wear surgical stockings (RIMA hose) for 2 weeks after surgery to improve circulation and reduce swelling. b. Take ASPIRIN 81 mg twice daily for 4 weeks or as directed. This is your blood thinner. c. If you are on Coumadin- you will have daily/weekly blood work to monitor your levels. This will be done by either your family physician/ vehicle washer (if you are on Coumadin chronically) versus your orthopedic surgeon. Expect a phone call the day of or the day after your blood work is drawn to adjust your dose accordingly. B. There are a few signs you need to watch for after you are home. Call [facility] at [phone] if you experience any of the following: a. If you have a temperature of 101 degrees or higher. b. Sudden increase in pain in your hip not relieved by rest or pain medication. c. Any fluid or drainage from the incision; redness of the incision. d. Shortness of breath or chest pain. C. Call your physician if: a. Temperature is greater than 101 degrees (F). b. Pain is not relieved by prescribed pain medications. c. Increase drainage or redness from incision. d. Unanswered questions or concerns. D. Pain Medication: a. You will be prescribed pain medication upon discharge that should last till your first post-operative appointment. b. If you experience nausea and/or skin rash, discontinue this medication and contact our office for an alternative medication. c. Caution- narcotic pain medication can cause constipation. FOLLOW UP VISIT: Please call [facility] at [phone] to schedule a follow up appointment 10-14 days from the date of your surgery date. Core Measure Problem Core Measures: None
[2017-09-26] MEDS: QUETIAPINE FUMARATE 25 MG TAB PO SCH (13:36)
[2017-09-26] MEDS ORDERED: HYDR-5688 PO (13:55)
--- NOTE | 2017-09-26 14:09 | Discharge Summary ---
Discharge Summary Date of Service Sep 26, 2017. Discharge Summary Admission Date: Sep 21, 2017 at 20:51 Discharge Date: Sep 26, 2017 Discharge Disposition: detention facility Principal Diagnosis: Hip fracture Medication Reconciliation Continued Medications: Acetaminophen (Tylenol) 325 Mg Tab 650 MG PO QPM, TAB Acetaminophen (Tylenol) 325 Mg Tab 650 MG PO Q4H PRN for Pain or Fever, TAB NOT TO EXCEED 3 GRAMS/24 HOURS. Artificial Tear Solution (Artificial Tears) 1 Josefa Josefa 1 DROPS OP TID, #30 ML 5 Refills Aspirin (Aspirin Ec) 81 Mg Tab 81 MG PO BID Bisacodyl (Dulcolax) 10 Mg Sup 1 SUPP [place] QAM PRN for EARLY AM DAY 4, NO BM., SUP Chlorhexidine Gluconate (Mouth (Peridex) 0.12 % Josefa 30 ML PO BID for 8 Days, #473 ML 3 Refills Citalopram Hydrobromide (Celexa) 20 Mg Tab 20 MG PO QAM, TAB Divalproex Sodium (Depakote Sprinkle) 125 Mg Cap 125 MG PO BID, CAP Estrogens, Conjugated (Premarin) 14 Appln/30 Gm Cr 0.625 MG PV WK GIVEN ON FRIDAYS. Hydrocodone/Acetaminophen 5MG/325MG (Poth 5MG/325MG) Tab 0.5 TABLET PO Q4H PRN for Pain, #5 TAB (This prescription has been renewed) FOR PAIN 4-10/10 SCALE. Levothyroxine Sodium (Levothyroxine Sodium) 25 Mcg Tab 25 MCG PO QAM for 90 Days, #90 TAB 3 Refills Lisinopril (Lisinopril) 20 Mg Tab 20 MG PO QAM Magnesium Hydroxide (Milk of Magnesia) 30 Ml Susp 30 ML PO QPM PRN for NO BM FOR 3 DAYS. Melatonin (Melatonin Maximum Strengt) 5 Mg Tab 5 MG PO DAILY AT 1800 for 30 Days, #30 TAB 1 Refill Polyethylene Glycol 3350 (Miralax) 1 Pow Pow 17 GM PO QAM, #255 GM Potassium Chloride (Klor-Con Sprinkle) 10 Meq Cap 20 MEQ PO QAM Quetiapine Fumarate (Seroquel) 50 Mg Tab 75 MG PO DAILY AT 1400, TAB Ranitidine Hcl (Zantac) 150 Mg Tab 150 MG PO BID, TAB Sennosides-Docusate Sodium (Senna-S) 1 Tab Tab 2 TABS PO BID Sodium Phosphate/Biphosphate (Fleet Enema) Lanny 1 EA [place] DAILY PRN for AM DAY 4, NO BM., BTL [Medpass 2.0] () 60 ML PO QID DEFICIENCY OF OTHER SPECIFIED B GROUP VITAMINS. Admission Information HPI (per Admitting provider): CHIEF COMPLAINT: R femoral fracture, fall as per records. HISTORY OF PRESENT ILLNESS: History obtained from patient's family, records. Unable to obtain history from patient because of severe dementia. Patient is an [facility] resident. Medical history significant for dementia, hypertension, history of TIA, chronic anemia as per records (baseline hemoglobin of 11), history of traumatic C1 fracture on cervical collar since 2014. As per patient's , patient tried to get up from her wheelchair today, subsequently, fell down on her right side. Cried out in pain, could not get up. An outpatient x-ray showed nondisplaced fracture of right femoral neck, subcapital region. Patient sent to the Emergency Room. MEDICAL HISTORY: As above. Patient sustained a C1 fracture with spinal instability last February 2015. Last CT from April of 2015 showed marked displacement of fracture segments, left arch of C1, right posterior arch of C1, marked asymmetry of dense with respect to lateral masses and also misalignment of sagittal images. The patient evaluated by [facility]. Patient was deemed to be a poor candidate - would not likely survive surgery needed to correct the fracture as per notes. Patient will need to wear a cervical collar for an indefinite amount of time. No follow up visits since. 2D echo from 2013 showed EF 50%, diastolic dysfunction. SURGERIES: She has had tonsillectomy, eye surgery, pelvic surgery. HOME MEDICATIONS: Include Tylenol, bisacodyl, chlorhexidine, estrogen, magnesium hydroxide, Senokot, sodium phosphate, melatonin, potassium chloride, artificial tears, citalopram, Depakote, Vicodin, levothyroxine, lisinopril, polyethylene glycol, ranitidine. ALLERGIES: DOXYCYCLINE, ERYTHROMYCIN, LEVOCABASTINE, LODOXAMIDE, BACTRIM, VENLAFAXINE. FAMILY HISTORY: Could not be obtained. PERSONAL AND SOCIAL HISTORY: Nonsmoker. No chronic intake of alcoholic beverages. Homemaker in her younger years Currently alf resident. REVIEW OF SYSTEMS: Cannot be reliably obtained. PHYSICAL EXAMINATION: VITAL SIGNS: Blood pressure was noted to be 158/62 later 130/80, pulse rate 87, RR 18, temperature 36.7, sats 96 on room air. GENERAL: Lying on her left lateral decubitus. Noted to be demented, slightly uncomfortable. No respiratory distress. Hyposthenic. SKIN: Pallor, warm. HEENT: Pale palpebral conjuctivae. No ptosis. Dry buccal mucosa. NECK: Cervical collar in place. CHEST: Decreased effort. No tenderness. HEART: Regular rate and rhythm. No murmur. ABDOMEN: Soft, nontender. EXTREMITIES: Tenderness on the right hip. No other gross deformities. NEUROLOGIC: Demented. Gait and stance not assessed. No facial asymmetry Hospital Course FALL: with resultant right femoral fracture -secondary to mechanical fall -has baseline ambulatory dysfunction and was mostly wheelchair dependent -s/p ORIF POD#3 -pain control; has been -DVT prophylaxis as per Ortho recommendations -encourage incentive spirometry which may prove difficult given dementia CHRONIC UNSTABLE CERVICAL FRACTURE: -unstable cervical fracture, has been on a cervical collar since 2014 -prior evaluation deemed the patient to be a poor surgical candidate (as per [facility] [place] evaluation in 2015.) -Anesthesiology aware of this issue as well HTN: -continue home meds; restarted lisinopril -stopped IV fluids DEMENTIA: -as per records -remains confused and at baseline Hx Of TIA: -as per records -continue ASA CHRONIC ANEMIA: -hemoglobin was at baseline ~Hb 10 prior to surgery -has drifted down secondary to blood loss from surgery; no noted bleeding elsewhere PHYSICAL EXAM ON DAY OF DISCHARGE: GENERAL: Patient is in no acute distress. HEENT: No acute trauma, normocephalic, mucous membranes moist, no nasal congestion, no scleral icterus. NECK: No stridor, trachea is midline. LUNGS: Clear to auscultation bilaterally, no wheeze, no rhonchi, breath sounds equal. HEART: Without murmurs gallops or rubs, regular rate and rhythm. ABDOMEN: Soft, nontender, bowel sounds positive, no hepatosplenomegaly EXTREMITIES: No cyanosis or edema, right hip with dressing over incision NEUROLOGIC: Confused, unable to assess neuro exam due to mentation/not following directions; appears to be moving all 4 extremities; no acute focal motor deficits noted SKIN: No rash, no jaundice, no diaphoresis. Total time spent on discharge = 39 This includes examination of the patient, discharge planning, medication reconciliation, and communication with other providers. Discharge Instructions see patient instructions
== END 2017-09-26 14:40 | DRG 482 ==
LOC: C.EDA 17:13 → C.MSW 20:51 → ENRESERV 21:12
PROVIDERS: ADMIT Internal Medicine; ATTEND Internal Medicine
PROC: 0QS604Z Reposition Right Upper Femur with Internal Fixation Device, Open Approach (ICD-10-PCS; principal; 2017-09-23 07:00)
DX: S72.011A Unspecified intracapsular fracture of right femur, initial encounter for closed fracture (principal); F03.90 Unspecified dementia, unspecified severity, without behavioral disturbance, psychotic disturbance, mood disturbance, and anxiety; I10 Essential (primary) hypertension; D64.9 Anemia, unspecified; Z79.899 Other long term (current) drug therapy; Z79.82 Long term (current) use of aspirin; Z88.2 Allergy status to sulfonamides; Z88.1 Allergy status to other antibiotic agents; Z86.73 Personal history of transient ischemic attack (TIA), and cerebral infarction without residual deficits; W05.0XXA Fall from non-moving wheelchair, initial encounter; S12.9XXD Fracture of neck, unspecified, subsequent encounter; X58.XXXD Exposure to other specified factors, subsequent encounter